=== PATIENT | female | born 2000 | race Caucasian/White ===

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

== ENCOUNTER 2023-03-01 16:09 | Emergency (ER) | payer SELFPAY ==
[~2023-03-01] VITALS: Ht 157.5 cm; Wt 61.4 kg
[~2023-03-01 16:09] MED LIST: FERR-82 PO
[2023-03-01 16:24] VITALS: BP 99/63; PULSE 79; RESP 14; TEMP 97.8
[2023-03-01] MEDS ORDERED: ACETAMINOPHEN 325 MG TABLET PO ONE (17:15)
== END 2023-03-01 21:26 | disposition still patient (30) ==
LOC: EMS 16:09
DX: S00.33XA Contusion of nose, initial encounter (principal); Y08.89XA Assault by other specified means, initial encounter; Y93.89 Activity, other specified; Y92.89 Other specified places as the place of occurrence of the external cause; Y99.8 Other external cause status
CPT/HCPCS: 70450; 70486; 99284